=== PATIENT | male | born 1995 | race Caucasian/White ===

== ENCOUNTER 2018-07-18 19:00 | Emergency (ER) | payer OTHER, BC ==
[2018-07-18] MEDS ORDERED: Ondansetron 4 MG Tab.DIS PO ONE (19:01)
[2018-07-18 19:08] VITALS: BP 155/75
[2018-07-18] MEDS ORDERED: Sodium Chloride 0.9% 10 ML Syringe FLUSH PRN (19:09)
[2018-07-18] MEDS ORDERED: Sodium Chloride 0.9% 1,000 ML IV ONE ×2 (19:10→19:27)
[2018-07-18] MEDS ORDERED: Ondansetron 8 MG in Sodium Chloride 0.9% 50 ML IV ONE (19:14)
--- NOTE | 2018-07-18 19:21 | EDM.PDOC ---
ED HPI GENERAL MEDICAL PROBLEM - General Chief Complaint: Gastrointestinal Problem Stated Complaint: N/V Time Seen by Provider: 07/18/18 19:06 Source of Information: Reports: Patient, Family History Limitations: Reports: No Limitations - History of Present Illness INITIAL COMMENTS - FREE TEXT/NARRATIVE: Patient is a 23 year old male who went out for his 23st bday last night and has had n/v for the last 20 hours/ mom states he is weak and continues to have dry heaves-He denies pain/ fever or chills. Has taken some po fluids but then quickly vomits Onset: Today, Gradual Duration: Hour(s): (20) Severity: Mild Improves with: Reports: None Worsens with: Reports: None - Related Data Allergies Allergy/AdvReac Type Severity Reaction Status Date / Time No Known Allergies Allergy Verified 07/18/18 19:08 Home Meds: Home Meds . [No Known Home Meds] 08/28/15 [History] Past Medical History - Past Health History Medical/Surgical History: Denies Medical/Surgical History Other Musculoskeletal History: L shoulder dislocations - History Comment History Comment: reviewed adn agree with nursing assessment. Social & Family History - Tobacco Use Smoking Status *Q: Never Smoker - Living Situation & Occupation Living situation: Reports: Single (Reviewed SH and FH and agree with nursing documentaito) ED ROS GENERAL - Review of Systems Review Of Systems: See Below HEENT: Reports: No Symptoms Respiratory: Reports: No Symptoms Cardiovascular: Reports: No Symptoms GI/Abdominal: Reports: Nausea, Vomiting Musculoskeletal: Reports: No Symptoms Skin: Reports: No Symptoms Neurological: Reports: Paresthesia ED EXAM, GI/ABD - Physical Exam Exam: See Below Exam Limited By: No Limitations General Appearance: Alert, WD/WN, No Apparent Distress Ears: Normal External Exam, Normal Canal, Hearing Grossly Normal, Normal TMs Nose: Normal Inspection, Normal Mucosa, No Blood Throat/Mouth: Normal Inspection, Normal Lips, Normal Teeth, Other (dry mucous membranes) Head: Atraumatic, Normocephalic Neck: Normal Inspection, Supple Respiratory/Chest: No Respiratory Distress, Lungs Clear, Normal Breath Sounds, No Accessory Muscle Use, Chest Non-Tender Cardiovascular: Normal Peripheral Pulses, Regular Rate, Rhythm, No Edema, No JVD , No Murmur GI/Abdominal Exam: Normal Bowel Sounds Extremities: Normal Inspection, Normal Range of Motion, Non-Tender Neurological: Alert, Oriented, Normal Cognition, Normal Gait, Normal Reflexes, No Motor/Sensory Deficits Skin Exam: Warm, Dry, Intact, Normal Color, No Rash Course - Vital Signs Last Recorded V/S: Last Vital Signs Temp 97.0 F 07/18/18 19:02 Pulse 98 07/18/18 19:02 Resp 28 H 07/18/18 19:02 BP 155/75 H 07/18/18 19:02 Pulse Ox 100 07/18/18 19:02 - Orders/Labs/Meds Orders: Active Orders 24 hr Category Date Time Status Peripheral IV Care [RC] . DIRECTED Care 07/18/18 19:10 Active Ondansetron [Take Home: Ondansetron ODT 4 MG, 2 Tab Med 07/18/18 20:08 Once Pack] 1 packet PO ONETIME ONE Ondansetron [Zofran] 8 mg Med 07/18/18 19:14 Active Sodium Chloride 0.9% [Normal Saline] 50 ml IV Q8H Sodium Chloride 0.9% [Saline Flush] Med 07/18/18 19:09 Active 10 ml FLUSH ASDIRECTED PRN Peripheral IV Insertion Adult [OM.PC] Routine Oth 07/18/18 19:09 Ordered Medication Orders Ondansetron HCl 8 mg/ Sodium (Chloride) 54 mls @ 100 mls/hr IV Q8H ONE Stop: 07/19/18 05:18 Last Admin: 07/18/18 19:24 Dose: 100 mls/hr Ondansetron HCl (Take Home: Ondansetron Odt 4 Mg, 2 Tab Pack) 1 packet PO ONETIME ONE Stop: 07/18/18 20:09 Sodium Chloride (Saline Flush) 10 ml FLUSH ASDIRECTED PRN PRN Reason: Keep Vein Open Labs: Laboratory Tests 07/18/18 07/18/18 Range/Units 19:10 19:10 WBC 9.1 (5.0-10.0) 10^3/uL RBC 5.18 (4.50-6.00) 10^6/uL Hgb 15.3 (14.0-18.0) g/dL Hct 43.1 (40.0-54.0) % MCV 83.2 (82.0-94.0) fL MCH 29.5 (27.0-32.0) pg MCHC 35.5 (33.0-38.0) g/dL RDW Coeff of Bernadine 12.2 (11.0-15.0) % Plt Count 271 (150-400) 10^3/uL Neut % (Auto) 81.3 (35-85) % Lymph % (Auto) 9.3 L (10-55) % [place] % (Auto) 9.0 (0-16) % Eos % (Auto) 0.2 (0-5) % Baso % (Auto) 0.2 (0-3) % Neut # (Auto) 7.37 H (1.80-7.00) 10^3/uL Lymph # (Auto) 0.84 L (1.00-4.80) 10^3/uL [place] # (Auto) 0.82 H (0.00-0.80) 10^3/uL Eos # (Auto) 0.02 (0.00-0.45) 10^3/uL Baso # (Auto) 0.02 10^3/uL Sodium 141 (136-145) mEq/L Potassium 3.4 L (3.5-5.0) mEq/L Chloride 102 (98-106) mEq/L Carbon Dioxide 23 (21-32) mmol/L BUN 16 (7-18) mg/dL Creatinine 1.4 H (0.7-1.3) mg/dL Est Cr Clr Drug Dosing 83.47 mL/min Estimated GFR (MDRD) > 60 (>=60) mL/min Glucose 134 H (75-99) mg/dL Calcium 8.7 (8.4-10.1) mg/dL Meds: Medications Generic Name Dose Route Start Last Admin Trade Name Freq PRN Reason Stop Dose Admin Ondansetron HCl 8 mg/ Sodium 54 mls @ 100 mls/hr 07/18/18 19:14 07/18/18 19: 24 Chloride IV 07/19/18 05:18 100 mls/hr Q8H ONE Administration Ondansetron HCl 1 packet 07/18/18 20:08 Take Home: Ondansetron Odt 4 Mg, 2 Tab Pack PO 07/18/18 20:09 ONETIME ONE Sodium Chloride 10 ml 07/18/18 19:09 Saline Flush FLUSH ASDIRECTED PRN Keep Vein Open Discontinued Medications Generic Name Dose Route Start Last Admin Trade Name Jn PRN Reason Stop Dose Admin Sodium Chloride 1,000 mls @ 5,000 mls/hr 07/18/18 19:10 07/18/18 19:16 Normal Saline IV 07/18/18 19:21 5,000 mls/hr .BOLUS ONE Administration Sodium Chloride 1,000 mls @ 5,000 mls/hr 07/18/18 19:27 07/18/18 19:35 Normal Saline IV 07/18/18 19:38 5,000 mls/hr .BOLUS ONE Administration Sodium Chloride Confirm 07/18/18 19:34 07/18/18 19:36 Normal Saline Administered 07/18/18 19:35 Not Given Dose 100 mls @ as directed .ROUTE .[facility] - Re-Assessments/Exams Free Text/Narrative Re-Assessment/Exam: 07/18/18 19:24 Patient had iv established and blood work obtained. Free Text/Narrative Re-Assessment/Exam: 07/18/18 20:09 Patient was given 2 liters of NS and 8mg of zofran and then approximately 45mins later was given PO challenge and was successful. and patient will be d/c 'd home with mom with Zofran ODT take home take pack and RX for zofran. Departure - Departure Time of Disposition: 20:11 Disposition: Home, Self-Care 01 Condition: Good Clinical Impression: Nausea & vomiting Qualifiers: Vomiting Intractability: intractable - Discharge Information *PRESCRIPTION DRUG MONITORING PROGRAM REVIEWED*: No *COPY OF PRESCRIPTION DRUG MONITORING REPORT IN PATIENT JOSIE: No Instructions: Dehydration, Adult, [id number], Nausea and Vomiting, Adult Forms: ED Department Discharge Additional Instructions: Use Zofran for nausea small amounts of clear liquids for next 8-12 hours then gradually increase then diet tomorrow with bland diet. Return if worse. - My Orders Last 24 Hours: My Active Orders 07/18/18 19:09 Sodium Chloride 0.9% [Saline Flush] 10 ml FLUSH ASDIRECTED PRN Peripheral IV Insertion Adult [OM.PC] Routine 07/18/18 19:10 Peripheral IV Care [RC] . DIRECTED 07/18/18 19:14 Ondansetron [Zofran] 8 mg Sodium Chloride 0.9% [Normal Saline] 50 ml IV Q8H 07/18/18 20:08 Ondansetron [Take Home: Ondansetron ODT 4 MG, 2 Tab Pack] 1 packet PO ONETIME ONE - Assessment/Plan Last 24 Hours: My Active Orders 07/18/18 19:09 Sodium Chloride 0.9% [Saline Flush] 10 ml FLUSH ASDIRECTED PRN Peripheral IV Insertion Adult [OM.PC] Routine 07/18/18 19:10 Peripheral IV Care [RC] . DIRECTED 07/18/18 19:14 Ondansetron [Zofran] 8 mg Sodium Chloride 0.9% [Normal Saline] 50 ml IV Q8H 07/18/18 20:08 Ondansetron [Take Home: Ondansetron ODT 4 MG, 2 Tab Pack] 1 packet PO ONETIME ONE
[2018-07-18] MEDS ORDERED: Sodium Chloride 0.9% 100 ML ONE (19:34)
[2018-07-18 19:45] LABS: CHLORIDE,CL 102 mEq/L (98-106); SODIUM,NA 141 mEq/L (136-145)
[2018-07-18] MEDS ORDERED: Take Home: Ondansetron 4 MG Tab.DIS, 2 Tab Pack PO ONE (20:08)
== END 2018-07-18 20:35 | disposition home or self-care (01) ==
LOC: CC.ED 19:00
DX: R11.2 Nausea with vomiting, unspecified (principal)
CPT/HCPCS: 36415; 80048; 85025; 96365; 99283-25; A9270-GY; J2405; J7030; J7050